=== PATIENT | male | born 1985 | race Caucasian/White ===

== ENCOUNTER 2021-11-19 22:17 | Emergency (ER) | payer OTHER ==
[~2021-11-19] VITALS: Ht 177.8 cm; Wt 79.4 kg
[2021-11-19 22:23] VITALS: BP 138/77
[2021-11-19] MEDS ORDERED: clonazePAM 1 MG TABLET PO ONE (23:00)
[2021-11-19] MEDS ORDERED: NALO4SPR BNOSTRILS (23:05)
[2021-11-19] MEDS ORDERED: clonazePAM 1 MG TABLET ONE (23:12)
--- NOTE | 2021-11-19 23:13 | NUR ---
PT IS MEDICALLY CLEARED FOR BOOKING AND RELEASED UNDER THE CARE OF [employer] OFFICERS IN STABLE CONDITION. PT IS AMBULATORY ON STEADY GAIT. PT LEFT ON HAND CUFFS.
== END 2021-11-19 23:15 | disposition home or self-care (01) ==
LOC: ER 22:21
DX: F13.20 Sedative, hypnotic or anxiolytic dependence, uncomplicated (principal); F11.90 Opioid use, unspecified, uncomplicated; F17.200 Nicotine dependence, unspecified, uncomplicated; Z60.2 Problems related to living alone

== ENCOUNTER → 2024-07-31 | Emergency (ER) | payer OTHER ==
[~2024-07-31] VITALS: Ht 175.3 cm; Wt 72.6 kg
[~2024-07-31] MED LIST: NALO4SPR BNOSTRILS
[2024-07-31 18:59] VITALS: BP 122/71; TEMP 97.8; O2SAT 97
== END | disposition home or self-care (01) ==
LOC: ER 16:17
DX: F11.10 Opioid abuse, uncomplicated (principal); F17.200 Nicotine dependence, unspecified, uncomplicated; F19.10 Other psychoactive substance abuse, uncomplicated; Z60.2 Problems related to living alone; Z59.00 Homelessness unspecified
CPT/HCPCS: 82962-TC